=== PATIENT | female | born 1950 | race Caucasian/White ===

== ENCOUNTER → 2025-02-10 08:13 | Outpatient (REF) | payer OTHER, SELFPAY | LOC: RAD 08:13 | PROVIDERS: ATTENDING PHYSICIAN Student in an Organized Health Care Education/Training Program | DX: M54.9 Dorsalgia, unspecified (principal) | CPT/HCPCS: 72100 ==

== ENCOUNTER 2025-03-02 19:27 | Emergency (ER) | payer OTHER, SELFPAY ==
[2025-03-02 19:28] VITALS: BP 141/76
[2025-03-02 20:59] VITALS: BMI 38.2
--- NOTE | 2025-03-02 21:43 | ED.MUSCINJ ---
HPI-Injury
General
Chief Complaint: Musculo-Skeletal Complaint
Source: patient
Exam Limitations: none
Time Seen by Provider: 03/02/25 20:46
Nursing documentation reviewed up to this point in time: agreed with
History of Present Illness-Injury
Initial Injury comments:
Note:
CHIEF COMPLAINT(S)
Right ankle pain.
HISTORY OF PRESENT ILLNESS
The patient is a 75-year-old female who presented with right ankle pain after slipping on a rock. The incident occurred on Friday, and she describes a mechanism of injury resulting in her ankle smacking and potentially breaking upon impact. She
reports applying ice and elevating the ankle since the injury. The patient denies pain in other areas and confirms no head trauma or loss of consciousness during the incident. She describes the pain as being located under and down the ankle.
PHYSICAL EXAM
- Right ankle appears intact with visible swelling.
- The patient points to pain under and around the right ankle area.
- No tenderness in the knee or other parts of the leg.
- Nursing notes reviewed and vital signs reviewed.
PLAN
The provider will review the X-ray another time for any unseen issues.
Discussed potential options for ankle support, specifically considering a Velcro ankle brace instead of an air cast.
DIFFERENTIAL DIAGNOSIS
The Differential Diagnosis includes, in no particular order and is not limited to:
1. Ankle sprain
2. Ankle fracture
Disposition:
SUMMARY OF ENCOUNTER
The patient, a 75-year-old female, presented to the emergency department with right ankle pain after slipping on a rock. She reported swelling but no pain in other areas, head trauma, or loss of consciousness. An X-ray was performed to evaluate the
injury, which showed no acute osseous abnormalities.
ASSESSMENT
The patient has a swollen right ankle without bruising or acute fracture, as indicated by X-ray findings.
PLAN
The patient will be provided with an air cast and advised to follow up with orthopedics for further evaluation and management of her right ankle injury.
INDEPENDENT REVIEW OF LABS AND INTERPRETATION OF TESTS
My independent interpretation of the X-ray showed no acute osseous abnormality.
PATIENT EDUCATION AND COUNSELING
The patient was informed about the use of an air cast for ankle support and advised to follow up with orthopedics to ensure proper healing and further management if necessary.
FOLLOW-UP INSTRUCTIONS
The patient should schedule a follow-up visit with orthopedics to monitor the ankles recovery and address any ongoing treatment needs.
MEDICAL DECISION MAKING
- Complexity of Data Reviewed: Chronic conditions affecting care. Differential Diagnosis includes ankle sprain, ankle fracture, tendon injury, ligament tear, soft tissue injury, contusion, osteoarthritis flare-up, gout, Achilles tendonitis,
hemarthrosis.
- Data:
Category 1: My independent interpretation of the X-ray showed no acute osseous abnormality. The X-ray was also over-read by radiology and showed no acute abnormality.
Category 3: Discussion of management with orthopedic follow-up suggestion for further evaluation of her condition.
DIAGNOSIS
- Right ankle sprain (ICD-10: S93.4XXA)
Past History
Past History
ED Past Medical History: None
ED Past Surgical History: None
Social History
Tobacco: Non-smoker
Musculoskeletal Injury Exam
Musculoskeletal Injury Exam
Right Ankle:
Pain with Movement?: Mild
Tender to palpation?: Mild
Soft tissue swelling?: Mild
External deformity and angulation?: None
Joint effusion?: None
Contusion?: None
Hematoma-local bleeding into tissue?: None
Crepitus with movement?: No
Joint instability?: No
Malalignment/deformity?: No
Range of motion: Full
Distal skin color and temperature: normal-warm & good color
Phy Exam
General Physical Exam
General Presentation: well appearing and mild distress
General age: appears stated age
General Skin: warm and dry
General Habitus: normal
General Mental: alert
Neurological Exam
Neurological Exam: alert and oriented x3
Musculoskeletal Exam
Musculoskeletal Exam: full ROM and neuro vasc intact
Psychiatric Exam
Psychiatric Exam: normal mood/affect
Injury Course
Orders/Labs/Results
Orders:
Orders
03/02/25 19:31
Ankle, Right 3 view CR [CR Ankle - Right Min 3 Views *] Urgent
Comment:
Reason For Exam: injury
03/02/25 21:46
Acetaminophen [Tylenol] 650 mg .ROUTE .STK-MED ONE
03/02/25 21:47
Air Splint Right-Treatment ONCE
03/02/25 21:48
Acetaminophen [Tylenol] 650 mg PO NOW STA
*Pulse Oximetry
SaO2: 98
Oxygen Mode of Delivery: Room air
Patient hypoxic: no
*Critical Care Note
Total Time (30-74mins, 75-104mins- exclusive of procedures): Not Applicable
Update Note
Update Note:
Patient wearing flip-flops and was able to ambulate here. She has no knee tenderness to palpation. I do not suspect a tibial plateau injury.
ED Attending Note
-
Portions of this chart may have been created with voice recognition software.� Occasional wrong word or��sound alike� substitutions may have occurred due to the inherent limitations of voice recognition software.
Discharge Plan
Departure
Patient Disposition: Home (Routine Discharge)
Date of Disposition: 03/02/25
Time of Disposition: 21:46
Patient with high blood pressure during this ER visit?: Yes
Condition: Good
Discharge Problem:
Ankle sprain
Instructions: Using Cold for Pain, Splint Care, Ankle sprain - ED discharge instructions, BLOOD PRESSURE
Referrals:
[facility] [Provider Group]
RANDI MCKINNEY MD [Family Provider, Family Practice]
Activity Restrictions/Additional Instructions:
Thank You for choosing [facility].
It was a pleasure meeting you and taking part in your care. We hope for your continued healing and wellness.
Please read discharge instructions in their entirety. However, they are for general education and may not describe your exact diagnosis at discharge. Information on your ER visit and medical conditions were discussed with you along with appropriate
follow up information...
If indicated, please take your medications as instructed and indicated on discharge paperwork.
Please schedule a follow up appointment as directed. Call to schedule an appointment
Please return to the emergency department with ANY change in, persisting, or worsening of symptoms. If any of your symptoms do not improve, or persist, or become more severe within 6-12 hours, please return to the emergency department for further
care.
Please return to the emergency department if you develop a headache, neck pain/stiffness, fever greater than 100.4F, chest pain, shortness of breath, persistent nausea, vomiting, slurred speech, difficulty walking, numbness/tingling, weakness, signs
of infection or any other symptoms that are worrisome to you.
If you have any questions or concerns please do not hesitate to call the Hospital at or E-mail me directly at [email or web address]
Interventions
Interventions:
*Risk Screen - Suicide Last Done: 03/02/25 19:31
*General Assessment Last Done: 03/02/25 22:00
*Neglect/Abuse Screening Last Done: 03/02/25 19:31
*ED- Fall Risk Assessment Last Done: 03/02/25 20:59
*ED COVID-19 Vaccine History Last Done: 03/02/25 20:59
*Nursing Disposition Last Done: 03/02/25 22:00
ED-Musculoskeletal Assessment Last Done: 03/02/25 20:59
Discharge Date and Time
Discharge Date/Time: 03/02/25 22:10
Print Language: MAORI
[2025-03-02] MEDS: TYLENOL 650 MG PO (21:48)
== END 2025-03-02 22:10 | disposition home or self-care (01) ==
LOC: EMR 19:27
PROVIDERS: EMERGENCY PHYSICIAN Student in an Organized Health Care Education/Training Program; FAMILY PHYSICIAN Student in an Organized Health Care Education/Training Program
DX: S93.401A Sprain of unspecified ligament of right ankle, initial encounter (principal); X50.1XXA Overexertion from prolonged static or awkward postures, initial encounter; R03.0 Elevated blood-pressure reading, without diagnosis of hypertension; Z88.0 Allergy status to penicillin; Z88.2 Allergy status to sulfonamides
CPT/HCPCS: 99283; 29515; 73610